=== PATIENT | female | born 1965 | race Caucasian/White ===

== ENCOUNTER 2017-04-07 13:43 | Emergency (ER) | payer SELFPAY ==
[~2017-04-07] VITALS: Ht 162.6 cm; Wt 178.0 kg
[2017-04-07] MEDS ORDERED: DSS100 PO (14:32)
[2017-04-07] MEDS ORDERED: PERCT PO (14:32)
[2017-04-07 16:05] VITALS: BP 137/75
== END 2017-04-07 17:15 | disposition home or self-care (01) ==
LOC: EMS 13:47
DX: S82.892A Other fracture of left lower leg, initial encounter for closed fracture (principal); Z85.72 Personal history of non-Hodgkin lymphomas; W18.39XA Other fall on same level, initial encounter; Y93.89 Activity, other specified; Y92.89 Other specified places as the place of occurrence of the external cause; Y99.9 Unspecified external cause status
CPT/HCPCS: 99281